=== PATIENT | female | born 1975 | race Caucasian/White ===

== ENCOUNTER 2024-01-13 17:25 | Emergency (ER) | payer MEDICAID, SELFPAY ==
[2024-01-13 18:06] VITALS: BP 132/78; PULSE 126; RESP 16; TEMP 37; O2SAT 94; BMI 22.0
--- NOTE | 2024-01-13 18:10 | ECG_ITS ---
Test Reason : PAIN Blood Pressure : / mmHG Vent. Rate : 102 BPM Atrial Rate : 102 BPM P-R Int : 160 ms QRS Dur : 074 ms QT Int : 346 ms P-R-T Axes : 047 007 030 degrees QTc Int : 450 ms Sinus tachycardia Septal infarct , age undetermined Nonspecific ST and T wave abnormality Abnormal ECG No previous ECGs available Referred By: Andre Donato Electronically Signed By:SHIRA ALEXANDER
--- NOTE | 2024-01-13 18:18 | ED.GENADULT ---
HPI - General Adult General Chief complaint: ETOH/Substance Use Stated complaint: ETOH Time Seen by Provider: 01/13/24 17:29 Source: patient, RN notes reviewed and old records reviewed Mode of arrival: EMS Limitations: no limitations History of Present Illness ED Provider: Tanmay MILIAN narrative: 48-year-old female with past medical history significant for alcohol dependence, liver cirrhosis, tachycardia presents for evaluation of ?I was sleeping. ? Patient reports that she has insomnia, so when she sleeps ?I sleep very deeply. ? She reports that her ex boyfriend dropped her off at her ex-'s house The ex came home and could not wake the patient up so called the ambulance The patient arrives awake, alert and oriented She denies any complaints or concerns. She does report bilateral leg swelling which is actually improved from her baseline She denies any chest pain, shortness of breath, abdominal pain, nausea vomiting Patient admits to alcohol consumption today ?a few shots up until 11:00 a.m.. Related Data Previous Rx's ?Medication ?Instructions ?Recorded cefuroxime axetil 250 mg tablet 250 mg PO Q12H #10 tabs 01/13/24 Allergies Allergy/AdvReac Type Severity Reaction Status Date / Time No Known Allergies Allergy Verified 01/13/24 18:08 Review of Systems Constitutional: Constitutional: Denies body ache(s), Denies chills, Reports difficulty sleeping, Denies fever(s) and Denies frequent falls Eyes: Eyes: Denies blurry vision ENT: Denies vertigo and Denies dizziness Cardiovascular: Cardiovascular: Denies chest pain, Reports leg edema and Denies dyspnea Respiratory: Respiratory: Denies cough and Denies dyspnea Gastrointestinal: Gastrointestinal: Denies abdominal pain, Denies nausea and Denies vomiting Genitourinary: Genitourinary: Denies dysuria Musculoskeletal: Musculoskeletal: Denies back pain Integumentary/Breasts: Skin/Breast: Denies rash Neurologic: Denies vertigo, Denies dizziness and Denies frequent falls Psychiatric: Psychiatric: Denies anxiety, Denies depression and Denies suicidal ideation [facility] Social History Social History Alcohol intake: current Smoked in Last 30 Days: No Use of substances other than those prescribed or required for medical reasons: No Advance Directives: No Advance Directives Information Provided: No Do you have a plan to hurt others: No Plan Patient : No Physical Exam ED Vital Signs: Vital Signs - 24 hr 01/13/24 18:06 01/13/24 22:00 Temperature 98.6 F 99.4 F Pulse Rate 126 H 103 H Respiratory Rate 16 12 Blood Pressure 132/78 115/62 Pulse Oximetry 94 95 Oxygen Delivery Method Room Air Room Air BMI result Body Mass Index 22.0 Const General: comfortable, no acute distress, alert and awake Nutritional Appearance: well nourished Orientation/consciousness: patient oriented x3 HENMT Head: Yes normocephalic and Yes atraumatic Eyes Eyelids: Yes eyelids normal Conjunctivae: conjunctivae normal Sclerae: sclerae normal Corneas: corneas normal Pupils: Equal, round and reactive pupils present EOM: EOMs intact bilaterally Neck Neck: Yes full ROM Resp Effort & Inspection: normal respiratory effort, able to speak in complete sentences, no audible wheezes and not labored Auscultation: clear to auscultation bilaterally Cardio Other: 1-2+ bilateral pitting edema to the lower extremities Rate: regular rate Rhythm: regular rhythm GI Inspection: Yes distended Palpation (GI): Soft to palpation, not firm, nontender, no guarding and not rigid Skin General skin exam: elasticity normal Neuro General: patient oriented x3 Cranial nerves: Yes Equal, round and reactive pupils present and Yes Bilaterally intact EOM present Cognition (Neuro): normal cognition Extrem Other: Moving all extremities well without any obvious deformities Course Reevaluation(s) Reevaluation #1: Patient requesting discharge at this time, she does have evidence of a UTI and chronic liver disease but otherwise no acute issues. Her vital signs have remained stable Time: 22:55 Medications Administered Discontinued Medications Generic Name Dose Route Start Last Admin Trade Name Freq PRN Reason Stop Dose Admin Potassium Chloride 40 meq 01/13/24 20:42 01/13/24 20:59 Potassium Chloride Er 20 Meq Tab.Er.Prt PO 01/13/24 20:43 40 meq ONCE ONE Administration Medical Decision Making Medical Decision Making MDM Narrative: 48-year-old female with past medical history as documented above presents for evaluation of which she describes in his insomnia. The patient was apparently difficult to arouse prior to hospitalization. The time my evaluation, the patient is sitting up, awake, alert and oriented. She does not appear lethargic or drowsy, she is able to hold and entire conversation. She does endorse leg swelling that is actually improving but is willing to have that evaluated today since she is here. Her abdomen seems somewhat distended but she has no abdominal pain. She states this is likely due to her history of cirrhosis as this is not new. The patient is noted to be tachycardic to 126. She states that she has a history of tachycardic and that is normal for her, however she states that she is not on any medication for tachycardia at this time Differential Diagnosis Differential Diagnoses: The differential diagnosis associated with the presentation includes Acute alcohol intoxication Liver cirrhosis Dependent edema CHF Tachycardia Dehydration Lab Data MDM Lab Attestation statement: I reviewed the patient's lab results. No leukocytosis. The patient does have a normocytic anemia which is likely related to history of liver cirrhosis platelet count is also low at 137 K. There is no left shift. Chemistries significant for a low potassium 3.0 which was repleted, chloride of 112, anion gap of 10, BUN of 5 with a normal creatinine of 0.67. Total bilirubin is elevated to 2.7 with an AST of 91 and alk-phos of 200, consistent with alcoholic liver disease. Total protein is low at 5.8 which is also consistent with liver disease. Urinalysis is consistent with a UTI 01/13/24 20:03 01/13/24 20:03 Labs: Lab Results 01/13/24 Range/Units 20:03 WBC 5.7 (4.8-10.8) X10*3/uL RBC 3.26 L (4.20-5.50) X10*6/uL Hgb 8.8 L (12.0-16.0) g/dl Hct 26.8 L (37.0-47.0) % MCV 82.2 (80.0-98.0) fL MCH 27.0 (27.0-33.0) pg MCHC 32.8 (31.0-35.0) g/dl RDW 20.9 H (11.0-16.0) % Plt Count 137 L (160-400) X10*3/uL MPV 9.5 (9.4-12.3) fL Immature Gran % (Auto) 0.3 (0.0-0.4) % Neut % (Auto) 33.1 L (45-73) % Lymph % (Auto) 50.6 H (20-40) % [place] % (Auto) 12.2 H (2-11) % Eos % (Auto) 2.8 (0-4) % Baso % (Auto) 1.0 (0-2) % Lymph # (Auto) 2.9 (1.2-4.9) X10*3/uL [place] # (Auto) 0.7 (0.1-1.2) X10*3/uL Eos # (Auto) 0.2 (0.0-0.4) X10*3/uL Baso # (Auto) 0.1 (0.0-0.2) X10*3/uL Abs Immat Gran (auto) 0.02 (0.00-0.03) X10*3/uL Absolute Neuts (auto) 1.9 L (2.0-8.3) x10*3/uL Absolute Nucleated RBC 0.000 (0.0-0.012) X10*3/uL Nucleated RBC % (auto) 0.0 (0.0-0.2) /100WBC Sodium 145 (135-145) mmol/L Potassium 3.0 L (3.3-5.1) mmol/L Chloride 112 H (96-108) mmol/L Carbon Dioxide 26 (22-29) mmol/L Anion Gap 10 L (12-20) BUN 5 L (9-16) mg/dL Creatinine 0.67 (0.5-1.4) mg/dL Estim Creat Clear Calc 86.8 Estimated GFR > 60 Random Glucose 148 H (60-115) mg/dL Calcium 7.3 L (8.4-10.2) mg/dL Total Bilirubin 2.7 H (0.0-1.0) mg/dL AST 91 H (5-31) U/L ALT 31 (0-31) U/L Alkaline Phosphatase 200 H (39-117) U/L B-Natriuretic Peptide 94 (<100) pg/mL Total Protein 5.8 L (6.5-8.0) g/dL Albumin 1.9 L (3.5-5.0) g/dL Lipase 48 (8-78) U/L Urine Color Dark Yellow Urine Appearance Cloudy Urine pH 5.5 (5.0-9.0) Ur Specific [place] 1.025 (1.005-1.025) Urine Protein 100 (2+) H (Neg-Trace) mg/dL Urine Glucose (UA) Negative (Negative) mg/dL Urine Ketones Negative (Negative) mg/dL Urine Blood Large (3+) H (Negative) Urine Nitrite Positive H (Negative) Ur Leukocyte Esterase Trace H (Negative) Urine RBC 6-10 H (0-2) /HPF Urine WBC 21-50 H (0-5) /HPF Ur Squamous Epith Cells 11-20 (0-2) /HPF Urine Bacteria 4+ (None Seen) Hyaline Casts 11-20 (0-2) /LPF Urine Opiates Screen Not Detected (Not Detect) Ur Buprenorphine Scrn Not Detected (Not Detect) ng/mL Ur Oxycodone Screen Not Detected (Not Detect) ng/mL Urine Methadone Screen Not Detected (Not Detect) ng/mL Urine Fentanyl Screen Not Detected (Not Detect) Ur Barbiturates Screen Not Detected (Not Detect) Ur Phencyclidine Scrn Not Detected (Not Detect) Ur Amphetamines Screen Not Detected (Not Detect) U Benzodiazepines Scrn Not Detected (Not Detect) Urine Cocaine Screen Not Detected (Not Detect) U Marijuana (THC) Screen Not Detected (Not Detect) Ethyl Alcohol 324 H* mg/dL Discharge Plan Discharge Clinical Impression: Leg swelling, Alcohol abuse, UTI (urinary tract infection), Acute hypokalemia Patient Disposition: Home, Self-Care Instructions: Urinary Tract Infection in Women (ED), Abuse of Alcohol (ED) Additional Instructions: Avoid excessive consumption of alcohol. Take cefuroxime twice daily for the next 5 days to treat urinary tract infection Follow-up with your primary doctor, return for new or worsening symptoms Prescriptions: New cefuroxime axetil 250 mg tablet 250 mg PO Q12H Qty: 10 0RF Print Language: Frisian
[2024-01-13 20:09] LABS: MANUAL DIFF FLAG NO
--- NOTE | 2024-01-13 20:10 | PC.NURSE ---
this rn assumed care of pt, pt a&ox4, respirations even and unlabored. pt reports her ex boyfriend had brought her to her ex husbands house where she was found sleeping. the ex called ems for her due to being unresponsive. pt reports she has insomina and sleeps very hard, pt reports last etoh drink at 11am. pt denies drug use. pt ambulated to bathroom with steady gait, urine sample obtained. pt changed into gown.
[2024-01-13 20:12] LABS: Basophils Absolute Auto 0.1 X10*3/uL (0.0-0.2); Eosinophils Absolute Auto 0.2 X10*3/uL (0.0-0.4); Eosinophils Percent Auto 2.8 % (0-4); Hematocrit 26.8 % (37.0-47.0); Hemoglobin 8.8 g/dl (12.0-16.0); Imm Gran Abs Auto 0.02 X10*3/uL (0.00-0.03); Imm Gran Pct Auto 0.3 % (0.0-0.4); Lymphocytes Absolute Auto 2.9 X10*3/uL (1.2-4.9); Lymphocytes Percent Auto 50.6 % (20-40); Mean Corpuscular HGB Conc 32.8 g/dl (31.0-35.0); Mean Corpuscular Volume 82.2 fL (80.0-98.0); Mean Platelet Volume 9.5 fL (9.4-12.3); Monocytes Absolute Auto 0.7 X10*3/uL (0.1-1.2); Monocytes Percent Auto 12.2 % (2-11); Neutrophils Absolute Auto 1.9 x10*3/uL (2.0-8.3); Neutrophils Percent Auto 33.1 % (45-73); Platelet Count 137 X10*3/uL (160-400); Red Blood Count 3.26 X10*6/uL (4.20-5.50); Red Cell Distribution Width 20.9 % (11.0-16.0); White Blood Count 5.7 X10*3/uL (4.8-10.8)
[2024-01-13 20:23] LABS: Amphetamine Screen Urine Not Detected (Not Detect); Barbiturates, Urine Not Detected (Not Detect); Benzodiazepines Screen Urine Not Detected (Not Detect); Buprenorphine Scr Not Detected (Not Detect); Cannabinoid Screen Urine Not Detected (Not Detect); Cocaine Screen Urine Not Detected (Not Detect); Fentanyl, urine Not Detected (Not Detect); Methadone Screen, Urine Not Detected (Not Detect); Opiate Screen Urine Not Detected (Not Detect); Oxycodone Screen Urine Not Detected (Not Detect); Phencyclidine Screen Urine Not Detected (Not Detect)
[2024-01-13 20:39] LABS: Alanine Aminotransferase 31 U/L (0-31); Albumin Level 1.9 g/dL (3.5-5.0); Alkaline Phosphatase 200 U/L (39-117); Anion Gap 10 (12-20); Aspartate Amino Transferase 91 U/L (5-31); Bilirubin Total 2.7 mg/dL (0.0-1.0); Blood Urea Nitrogen 5 mg/dL (9-16); Calcium 7.3 mg/dL (8.4-10.2); Carbon Dioxide 26 mmol/L (22-29); Chloride 112 mmol/L (96-108); Creatinine Clr Calc Pharmacy 86.8; Estimated Glomerular Filt Rate > 60; Glucose Random 148 mg/dL (60-115); Lipase 48 U/L (8-78); Sodium 145 mmol/L (135-145); Total Protein 5.8 g/dL (6.5-8.0)
[2024-01-13 20:45] LABS: Ethanol 324 mg/dL
[2024-01-13 20:46] LABS: B Type Natriuretic Peptide 94 pg/mL (<100)
[2024-01-13] MEDS: Potassium Chloride ER 20 MEQ TAB.ER.PRT 40 MEQ PO (20:59)
--- NOTE | 2024-01-13 20:59 | PC.NURSE ---
pt medicated per mar, tolerated well with water.
[2024-01-13 21:19] LABS: Appearance Urine Cloudy; Color Urine Dark Yellow; Glucose Urine UA Negative (Negative); Leukocyte Esterase Urine Trace (Negative); Nitrite Urine Positive (Negative); PH 5.5 (5.0-9.0); Specific Gravity - Urine 1.025 (1.005-1.025); UMIC TRIGGER UACC YES; Urine Blood Large (3+) (Negative); Urine Ketones Negative (Negative); Urine Protein 100 (2+) mg/dL (Neg-Trace)
[2024-01-13 21:41] LABS: Bacteria Urine 4+ (None Seen); UACC Culture Trigger YES; WBC Urine 21-50 /HPF (0-5)
[2024-01-13 22:00] VITALS: BP 115/62; PULSE 103; RESP 12; TEMP 37.4; O2SAT 95
[2024-01-13] MEDS: cefuroxime axetiL 250 MG TABLET PO (23:04)
[2024-01-13 23:07] VITALS: BP 115/62; PULSE 103; RESP 12; TEMP 37.4; O2SAT 95
== END 2024-01-13 23:08 | disposition home or self-care (01) ==
PROVIDERS: Physician Assistant; Emergency Provider Emergency Medicine
DX: M79.89 Other specified soft tissue disorders (principal); F10.10 Alcohol abuse, uncomplicated; Y90.8 Blood alcohol level of 240 mg/100 ml or more; N39.0 Urinary tract infection, site not specified; K74.60 Unspecified cirrhosis of liver
CPT/HCPCS: 36415; 80053; 80307; 81001; 83690; 83880; 85025; 87086; 93005; 99283; 99285

== ENCOUNTER → 2024-01-13 18:10 | Outpatient (BNV) | payer MEDICAID, SELFPAY | PROVIDERS: Emergency Provider Emergency Medicine; Visit Provider Internal Medicine | DX: R00.0 Tachycardia, unspecified (principal) | CPT/HCPCS: 93010 ==